=== PATIENT | female | born 1950 | race Caucasian/White ===

== ENCOUNTER 2023-03-02 11:26 | Inpatient (IN) | payer OTHER, MEDICARE ==
[~2023-03-02] VITALS: Ht 167.6 cm; Wt 85.0 kg
[2023-03-02 11:26] VITALS: BP_SYST 136; PULSE 92; RESP 18; TEMP 97.8; O2SAT 98
[2023-03-02] MEDS ORDERED: iohexoL 350 mgI/mL, 100 ML INFUS..BTL IV ONE (11:34)
[2023-03-02 11:53] LABS: BASOPHILS % (AUTO) 0.8 % (0.0-2.0); EOSINOPHILS # (AUTO) 0.1 K/uL (0.0-0.4); EOSINOPHILS % (AUTO) 1.4 % (0.0-4.0); HEMATOCRIT 37.8 % (36-48); HEMOGLOBIN 12.8 g/dL (12.0-16.0); LYMPHOCYTES # (AUTO) 1.7 K/uL (1.0-5.5); LYMPHOCYTES % (AUTO) 28.4 % (20.5-51.5); MEAN CORPUSCULAR HEMOGLOBIN 33 pg (27-31); MEAN CORPUSCULAR HGB CONC 34 % (32-36); MEAN CORPUSCULAR VOLUME 98 fL (79.0-98.0); MONOCYTES # (AUTO) 0.6 K/uL (0.0-1.0); MONOCYTES % (AUTO) 10.4 % (1.7-9.3); NEUTROPHILS # (AUTO) 3.6 K/uL (1.8-7.7); PLATELET COUNT (AUTO) 221 K/uL (130-430); RED BLOOD CELL COUNT(AUTO) 3.85 MIL/uL (4.2-6.2); RED CELL DISTRIBUTION WIDTH 13.3 % (9.0-15.0); WHITE BLOOD COUNT (AUTO) 6.1 K/uL (4.8-10.8)
[2023-03-02] MEDS ORDERED: CLOPIDOGREL BISULFATE 75 MG TABLET PO ONE (12:00)
[2023-03-02] MEDS ORDERED: ASPIRIN 325 MG TABLET PO ONE (12:00)
[2023-03-02 12:07] LABS: ANION GAP 6 (5-15); CALCIUM 8.9 mg/dL (8.4-11.0); CARBON DIOXIDE 28 mmol/L (23-29); CHLORIDE 104 mmol/L (98-107); CREATININE 0.89 mg/dL (0.55-1.30); GLUCOSE 109 mg/dL (74-106); POTASSIUM 4.4 mmol/L (3.5-5.1); SODIUM SERUM 138 mmol/L (136-145); UREA NITROGEN, BLOOD 12 mg/dL (8-21)
[2023-03-02 12:10] LABS: INR 1.1 (0.8-1.2); PROTHROMBIN TIME 11.2 SECS (9.5-12.5)
[2023-03-02 12:16] LABS: CHOLESTEROL 232 mg/dL (<200); HDL CHOLESTEROL 88 mg/dL (>55); TRIGLYCERIDES 69 mg/dL (30-150)
[2023-03-02 12:33] LABS: HEMOGLOBIN A1C 5.37 % (<5.7)
[2023-03-02] MEDS ORDERED: LORazepam 2 MG/ML VIAL IVP PRN (13:30)
[2023-03-02] MEDS ORDERED: ALBUTEROL SULFATE 0.083% 2.5 MG/3 ML VIAL.NEB INH PRN (13:30)
[2023-03-02] MEDS ORDERED: ONDANSETRON HCL 4 MG/2 ML VIAL IVP PRN (13:30)
[2023-03-02 13:47] VITALS: BP_SYST 144; PULSE 81; O2SAT 99
[2023-03-02] MEDS ORDERED: ACETAMINOPHEN 325 MG TABLET PO PRN ×2 (14:15→14:30)
[2023-03-02 16:25] LABS: BILIRUBIN,URINE NEGATIVE (NEGATIVE); BLOOD, URINE NEGATIVE (NEGATIVE); CLARITY/URINE CLEAR (CLEAR); COLOR,URINE YELLOW (YELLOW); GLUCOSE,URINE NEGATIVE (NEGATIVE); KETONES,URINE NEGATIVE (NEGATIVE); LEUKOCYTE ESTERASE ,URINE NEGATIVE (NEGATIVE); NITRITE, URINE NEGATIVE (NEGATIVE); PROTEIN URINE NEGATIVE (NEGATIVE); UROBILINOGEN,URINE 0.2 (0.2-1.0)
[2023-03-02 16:40] LABS: BARBITURATE, URINE NEGATIVE (NEG <=200); BENZODIAZEPINE, URINE NEGATIVE (NEG <=150); CANNABINOID, URINE NEGATIVE (NEG <=50); COCAINE, URINE NEGATIVE (NEG <=150); METHAMPHETAMINES SCREEN,URINE NEGATIVE (NEG <=500); OPIATE, URINE NEGATIVE (NEG <=100); PHENCYCLIDINE SCREEN,URINE NEGATIVE (NEG <=25); URINE AMPHETAMINE NEGATIVE (NEG <=500); URINE METHADONE NEGATIVE (NEG <=200); URINE OXYCODONE SCREEN NEGATIVE (NEG <=100)
[2023-03-02 16:42] LABS: UR TRICYCLIC ANTIDEPRESSANTS NEGATIVE (NEG <=300)
[2023-03-02] MEDS ORDERED: ATORVASTATIN 20 MG TABLET PO SCH (21:00)
[2023-03-02] MEDS ORDERED: MELATONIN 3 MG TABLET PO PRN (21:45)
[2023-03-02 23:00] VITALS: BP_SYST 130; PULSE 84; RESP 16; TEMP 96.8
[2023-03-02 23:15] VITALS: O2SAT 98
[2023-03-02] MEDS ORDERED: LISI10TA29 PO (23:19)
[2023-03-03] VITALS: BP_SYST 132; PULSE 85; RESP 16; TEMP 96.8; O2SAT 98
[2023-03-03] MEDS ORDERED: ATORVASTATIN 20 MG TABLET ONE ×2 (00:52→00:55)
[2023-03-03 04:00] VITALS: BP_SYST 132; PULSE 84; RESP 16; TEMP 96.2; O2SAT 98
[2023-03-03 08:00] VITALS: BP_SYST 156; PULSE 75; RESP 18; TEMP 97.2; O2SAT 96
[2023-03-03 08:08] VITALS: O2SAT 98
[2023-03-03] MEDS ORDERED: ASPIRIN 81 MG TAB.CHEW PO SCH (09:00)
[2023-03-03] MEDS ORDERED: CLOPIDOGREL BISULFATE 75 MG TABLET PO SCH (09:00)
[2023-03-03] MEDS ORDERED: ASPIRIN 81 MG TAB.CHEW PO ONE (09:00)
[2023-03-03] MEDS ORDERED: LIP40 PO (10:43)
[2023-03-03] MEDS ORDERED: ASPI-1393 PO (10:43)
[2023-03-03] MEDS ORDERED: CLOP75TA32 PO (10:43)
[2023-03-03 12:00] VITALS: BP_SYST 127; PULSE 89; RESP 18; TEMP 98.4; O2SAT 96
[2023-03-03 12:19] VITALS: BP_SYST 113; PULSE 85; RESP 16; TEMP 97.4; O2SAT 96
== END 2023-03-03 12:50 | disposition home or self-care (01) | DRG 69 ==
LOC: SED 11:26 → STU 14:34 → SED 22:50 → STU 03-03 00:32
PROVIDERS: ADMIT Internal Medicine; ATTEND Internal Medicine
DX: G45.9 Transient cerebral ischemic attack, unspecified (principal); I10 Essential (primary) hypertension; E78.5 Hyperlipidemia, unspecified; Z79.82 Long term (current) use of aspirin; Z79.899 Other long term (current) drug therapy
CPT/HCPCS: 36415; 70450-TC; 70496; 70498; 70551; 71045; 76376; 80048; 80061; 80307; 81001; 81003; 83037; 84484; 85025; 85610-TC; 85730-TC; 86886; 86900; 86901; 92610-GN; 93005; 93306; 94760; 97112-GP; 97116-GP; 99291; G0378; Q9967